=== PATIENT | male | born 1965 | race Caucasian/White ===

== ENCOUNTER 2018-06-01 15:20 | Emergency (ER) | payer MEDICAID ==
[~2018-06-01] VITALS: Ht 167.6 cm; Wt 148.8 kg
[2018-06-01 15:26] VITALS: BP 158/81
[2018-06-01] MEDS ORDERED: mupirocin 2% ointment 22GM TP STA (15:31)
[2018-06-01] MEDS ORDERED: mupirocin 2% nasal ointment 1gm UD NS STA (15:37)
[2018-06-01] MEDS ORDERED: CEPH500C5 PO (15:50)
[2018-06-01] MEDS ORDERED: TRAM50TA2 PO (15:50)
== END 2018-06-01 16:00 | disposition home or self-care (01) ==
LOC: ER 15:21
DX: S81.801A Unspecified open wound, right lower leg, initial encounter (principal); I87.2 Venous insufficiency (chronic) (peripheral); Z88.2 Allergy status to sulfonamides; Z79.2 Long term (current) use of antibiotics; Z79.899 Other long term (current) drug therapy; W54.8XXA Other contact with dog, initial encounter; Y93.89 Activity, other specified; Y92.89 Other specified places as the place of occurrence of the external cause; Y99.8 Other external cause status
CPT/HCPCS: 99283; A6255

== ENCOUNTER 2020-05-09 10:12 | Inpatient (IN) | payer MEDICAID ==
[~2020-05-09] VITALS: Ht 170.2 cm; Wt 165.0 kg
--- NOTE | 2020-05-09 10:58 | NUR ---
PT BEING SEEN BY DR. PICKARD AT BEDSIDE. RECEIVED VO TO HOLD OFF ON LABS, XRAY WANTING TO OBTAIN RECORDS FROM [facility].
[2020-05-09] MEDS ORDERED: ALBUTEROL INHALER 1 PUFF/90 MCG INHALER IH PRN (12:00)
[2020-05-09] MEDS ORDERED: CefTRIAXone/D5W-Rocephin 1gm 50 ML IV ONE (12:00)
[2020-05-09] MEDS ORDERED: dexamethasone sod phosphate 10mg/ml inj IV STA (12:00)
--- NOTE | 2020-05-09 12:10 | NUR ---
DR PICKARD STATES OKAY TO DRAW LABS PER ENTERED ORDERS AT THIS TIME.
[2020-05-09 12:51] LABS: BASOPHILS % (AUTO) 0.3 % (0-1); EOSINOPHILS % (AUTO) 0.2 % (0-6); HEMATOCRIT 41.3 % (42.0-52.0); HEMOGLOBIN 13.4 g/dl (14.0-17.9); LYMPHOCYTES # (AUTO) 0.6 X10'3 (1.1-4.8); LYMPHOCYTES % (AUTO) 8.3 % (21-51); MEAN CORPUSCULAR HEMOGLOBIN 29.4 PG (27.0-31.0); MEAN CORPUSCULAR HGB CONC 32.4 g/dL (33.0-36.5); MEAN CORPUSCULAR VOLUME 90.6 FL (78-98); MEAN PLATELET VOLUME 8.6 FL (7.4-10.4); MONOCYTES # (AUTO) 0.7 X10'3 (0-0.9); MONOCYTES % (AUTO) 10.4 % (2-12); NEUTROPHILS # (AUTO) 5.7 X10'3 (1.8-7.7); NEUTROPHILS % (AUTO) 80.8 % (42-75); PLATELET COUNT 173 X10'3 (140-440); RED BLOOD COUNT 4.56 X10'6 (4.70-6.10); RED CELL DISTRIBUTION WIDTH 13.8 % (11.5-14.5); WHITE BLOOD COUNT 7.1 X10'3 (4.5-11.0)
[2020-05-09] MEDS ORDERED: LISI-600 PO (12:57)
[2020-05-09 13:05] LABS: D-DIMER 0.55 MG/L FEU (0-0.50)
[2020-05-09 13:09] LABS: ALANINE AMINOTRANSFERASE 40 U/L (12-78); ALBUMIN 2.9 G/DL (3.4-5.0); ALBUMIN/GLOBULIN RATIO 0.7 (1.1-1.5); ALKALINE PHOSPHATASE 70 IU/L (46-116); ANION GAP 6 (8-16); ASPARTATE AMINO TRANSFERASE 39 U/L (10-37); BILIRUBIN,TOTAL 0.6 MG/DL (0.1-1.0); BLOOD UREA NITROGEN 6 MG/DL (7-18); BUN/CREATININE RATIO 5.4 (5.4-32.0); C-REACTIVE PROTEIN 4.82 MG/DL (0.0-0.5); CALCIUM 7.6 MG/DL (8.5-10.1); CHLORIDE 102 MMOL/L (99-107); CREATININE 1.12 MG/DL (0.60-1.10); GLUCOSE 109 MG/DL (70-104); MAGNESIUM 1.8 MG/DL (1.5-2.4); POTASSIUM 4.1 MMOL/L (3.5-5.1); SODIUM 139 MMOL/L (135-145); TOTAL CARBON DIOXIDE 30.7 MMOL/L (24-32); eGFR 68 ML/MIN
[2020-05-09] MEDS ORDERED: HYDROcodone/acetaminophen 5mg/325mg tablet PO PRN (14:10)
[2020-05-09] MEDS ORDERED: magnesium 4gm in 100ml NS 100 ML IV PRN (14:10)
[2020-05-09] MEDS ORDERED: magnesium Cl slow-release 64mg tablet PO PRN (14:10)
[2020-05-09] MEDS ORDERED: ondansetron/PF 4mg/2ml inj IV PRN (14:10)
[2020-05-09] MEDS ORDERED: potassium CL 10mEq/100ml bag 100 ML IV PRN ×2 (14:10)
[2020-05-09] MEDS ORDERED: mag hydrox/Alum hydrox/simeth 30ml oral suspension PO PRN ×2 (14:10)
[2020-05-09] MEDS ORDERED: loperamide 2mg capsule PO PRN (14:10)
[2020-05-09] MEDS ORDERED: HYDROcodone/acetaminophen 10/325mg tab PO PRN (14:10)
[2020-05-09] MEDS ORDERED: acetaminophen 325mg tablet PO PRN ×3 (14:10)
[2020-05-09] MEDS ORDERED: ipratropium/albuterol 3ml nebule NEB PRN (14:10)
[2020-05-09] MEDS ORDERED: magnesium hydroxide 30ml (MOM) UD suspension PO PRN ×2 (14:10)
[2020-05-09] MEDS ORDERED: potassium Cl 20 mEq SR tablet PO PRN ×2 (14:10)
[2020-05-09] MEDS ORDERED: magnesium 2GM in 50ml NS 50 ML IV PRN (14:10)
[2020-05-09] MEDS ORDERED: dexamethasone 4mg/ml inj IV SCH ×2 (15:55→16:00)
[2020-05-09 18:01] VITALS: BP 129/64
--- NOTE | 2020-05-09 18:19 | NUR ---
Problems reprioritized. Patient report given, questions answered & plan of care reviewed with JOHANNA CASTELLANOS.
--- NOTE | 2020-05-09 18:44 | NUR ---
Patient in room ORTHO 4006. I have received report from Chayito SPENCER and had the opportunity to ask questions and assume patient care.
[2020-05-09] MEDS: K and/or MAG REPLACEMENT MC SCH (20:00)
[2020-05-09 22:30] VITALS: BP 134/66
[2020-05-09] MEDS: docusate sod 100mg capsule PO SCH (22:48)
[2020-05-10 03:56] LABS: BASOPHILS % (AUTO) 0.3 % (0-1); EOSINOPHILS % (AUTO) 0 % (0-6); HEMATOCRIT 43.2 % (42.0-52.0); LYMPHOCYTES # (AUTO) 0.5 X10'3 (1.1-4.8); LYMPHOCYTES % (AUTO) 8.1 % (21-51); MEAN CORPUSCULAR HEMOGLOBIN 29.3 PG (27.0-31.0); MEAN CORPUSCULAR HGB CONC 32.3 g/dL (33.0-36.5); MEAN CORPUSCULAR VOLUME 90.5 FL (78-98); MONOCYTES # (AUTO) 0.5 X10'3 (0-0.9); MONOCYTES % (AUTO) 8.2 % (2-12); NEUTROPHILS % (AUTO) 83.4 % (42-75); PLATELET COUNT 180 X10'3 (140-440); RED BLOOD COUNT 4.77 X10'6 (4.70-6.10); RED CELL DISTRIBUTION WIDTH 13.8 % (11.5-14.5)
[2020-05-10 04:19] LABS: ALANINE AMINOTRANSFERASE 44 U/L (12-78); ALBUMIN 2.8 G/DL (3.4-5.0); ALBUMIN/GLOBULIN RATIO 0.7 (1.1-1.5); ALKALINE PHOSPHATASE 69 IU/L (46-116); ANION GAP 5 (8-16); ASPARTATE AMINO TRANSFERASE 37 U/L (10-37); BILIRUBIN,TOTAL 0.4 MG/DL (0.1-1.0); BLOOD UREA NITROGEN 8 MG/DL (7-18); BUN/CREATININE RATIO 8.9 (5.4-32.0); CALCIUM 8.5 MG/DL (8.5-10.1); CHLORIDE 105 MMOL/L (99-107); CHOL/HDL RATIO 3.6 (0.00-4.99); CHOLESTEROL 112 MG/DL (0-200); ETHANOL < 0.010 GM/DL (0.0-0.010); GLUCOSE 165 MG/DL (70-104); HDL CHOLESTEROL 31 MG/DL (35-60); LDL CHOLESTEROL 74 MG/DL (50-100); POTASSIUM 4.7 MMOL/L (3.5-5.1); SODIUM 141 MMOL/L (135-145); TOTAL CARBON DIOXIDE 31.5 MMOL/L (24-32); TOTAL PROTEIN 6.9 G/DL (6.4-8.2); TRIGLYCERIDES 42 MG/DL (20-135); eGFR 88 ML/MIN
--- NOTE | 2020-05-10 06:09 | NUR ---
Problems reprioritized. Patient report given, questions answered & plan of care reviewed with Noni SPENCER.
--- NOTE | 2020-05-10 06:49 | NUR ---
Patient in room ORTHO 4006. I have received report from JOHANNA Stratton and had the opportunity to ask questions and assume patient care.
[2020-05-10 08:00] VITALS: BP 131/91
[2020-05-10] MEDS: K and/or MAG REPLACEMENT MC SCH ×2 (08:00→20:00)
[2020-05-10] MEDS ORDERED: azithromycin/NS 500mg/250ml 250 ML IV SCH (08:00)
[2020-05-10] MEDS ORDERED: CefTRIAXone/D5W-Rocephin 1gm 50 ML IV SCH (08:00)
[2020-05-10] MEDS: enoxaparin 40mg/0.4ml syringe SUBCUT SCH (08:07)
[2020-05-10] MEDS: lisinopril 10 MG tablet PO SCH (08:08)
[2020-05-10] MEDS: docusate sod 100mg capsule PO SCH ×2 (08:08→21:05)
[2020-05-10] MEDS: dexamethasone sod phosphate 10mg/ml inj IV SCH (10:10)
[2020-05-10 12:53] LABS: CLARITY,URINE CLEAR (Clear); COLOR,URINE YELLOW (Yellow); GLUCOSE, URINE NEGATIVE (Neg); KETONES,URINE NEGATIVE (Neg); LEUKOCYTE ESTERASE ,URINE NEGATIVE (Neg); NITRITES, URINE NEGATIVE (Neg); OCCULT BLOOD,URINE NEGATIVE (Neg); PH,URINE 6.5 (4.8-8.0); PROTEIN,URINE NEGATIVE (Neg)
[2020-05-10 12:59] LABS: UA COLLECTION TYPE VOIDED
[2020-05-10 13:07] LABS: URINE AMPHETAMINE SCREEN NEGATIVE (Neg); URINE BARBITUATE SCREEN NEGATIVE (Neg); URINE BENZODIAZEPINES SCREEN NEGATIVE (Neg); URINE CANNABINOID SCREEN NEGATIVE (Neg); URINE COCAINE SCREEN NEGATIVE (Neg); URINE METHADONE SCREEN NEGATIVE (Neg); URINE OPIATE SCREEN NEGATIVE (Neg); URINE PHENCYCLIDINE SCREEN NEGATIVE (Neg)
--- NOTE | 2020-05-10 14:42 | NUR ---
Pt has been D/C'd. waiting on for crab picker. Addendum: 05/10/20 at 1443 by Noni Hammonds RN Wrong pt.
[2020-05-10 18:00] VITALS: BP 129/72
--- NOTE | 2020-05-10 18:44 | NUR ---
Patient in room ORTHO 4006. I have received report from Noni SPENCER and had the opportunity to ask questions and assume patient care.
--- NOTE | 2020-05-10 18:55 | NUR ---
Patient in room ORTHO 4006. I have received report from JOHANNA Stratton and had the opportunity to ask questions and assume patient care. Pt has been afebrile, O2Sat 92% R/A. No c/o pain. ate 1005 of meals. will cont to monitor. Addendum: 05/10/20 at 1858 by Noni Hammonds RN Problems reprioritized. Patient report given, questions answered & plan of care reviewed with JOHANNA Stratton.
[2020-05-10 19:59] VITALS: BP 146/89
[2020-05-11 01:00] VITALS: BP 138/78
--- NOTE | 2020-05-11 02:42 | NUR ---
Pt removed tele monitor at approximately 0030. When I went in to reattach tele monitor, pt complained that it was "annoying him" and he was very disgruntled at putting it back on, however he did allow me to reattach it. Tele chamber called to notify me that pt was off tele monitor again. Pt refusing tele monitor at this time. Bev in tele chamber made aware.
[2020-05-11 06:00] VITALS: BP 127/74
--- NOTE | 2020-05-11 06:05 | NUR ---
Patient in room ORTHO 4006. I have received report from JOÃO SPENCER and had the opportunity to ask questions and assume patient care.
--- NOTE | 2020-05-11 06:25 | NUR ---
Problems reprioritized. Patient report given, questions answered & plan of care reviewed with Kat SPENCER.
[2020-05-11 08:00] VITALS: BP 119/71
[2020-05-11] MEDS: K and/or MAG REPLACEMENT MC SCH ×2 (08:00→20:00)
[2020-05-11] MEDS: docusate sod 100mg capsule PO SCH ×2 (08:00→20:00)
[2020-05-11] MEDS: lisinopril 10 MG tablet PO SCH (08:18)
[2020-05-11] MEDS: dexamethasone sod phosphate 10mg/ml inj IV SCH (08:18)
[2020-05-11] MEDS: enoxaparin 40mg/0.4ml syringe SUBCUT SCH (08:19)
--- NOTE | 2020-05-11 08:20 | NUR ---
PATIENT REFUSING LABS. WILL NOTIFY
[2020-05-11 11:30] VITALS: BP 117/55
[2020-05-11] MEDS: VANCOMYCIN 1,500MG inj. 1,500 MG in normal saline 500ml IV soln 500 ML IV SCH ×2 (12:45→20:04)
[2020-05-11 13:31] LABS: BASOPHILS % (AUTO) 0.1 % (0-1); EOSINOPHILS % (AUTO) 0 % (0-6); HEMATOCRIT 42.4 % (42.0-52.0); HEMOGLOBIN 13.9 g/dl (14.0-17.9); LYMPHOCYTES # (AUTO) 0.5 X10'3 (1.1-4.8); MEAN CORPUSCULAR HEMOGLOBIN 29.4 PG (27.0-31.0); MEAN CORPUSCULAR HGB CONC 32.9 g/dL (33.0-36.5); MEAN CORPUSCULAR VOLUME 89.6 FL (78-98); MEAN PLATELET VOLUME 9.2 FL (7.4-10.4); MONOCYTES # (AUTO) 0.8 X10'3 (0-0.9); NEUTROPHILS # (AUTO) 11.9 X10'3 (1.8-7.7); NEUTROPHILS % (AUTO) 89.9 % (42-75); PLATELET COUNT 231 X10'3 (140-440); RED BLOOD COUNT 4.73 X10'6 (4.70-6.10); RED CELL DISTRIBUTION WIDTH 13.8 % (11.5-14.5); WHITE BLOOD COUNT 13.3 X10'3 (4.5-11.0)
[2020-05-11 13:45] LABS: ALANINE AMINOTRANSFERASE 42 U/L (12-78); ALBUMIN 2.8 G/DL (3.4-5.0); ALBUMIN/GLOBULIN RATIO 0.6 (1.1-1.5); ALKALINE PHOSPHATASE 74 IU/L (46-116); ANION GAP 3 (8-16); ASPARTATE AMINO TRANSFERASE 33 U/L (10-37); BILIRUBIN,TOTAL 0.3 MG/DL (0.1-1.0); BLOOD UREA NITROGEN 14 MG/DL (7-18); BUN/CREATININE RATIO 18.4 (5.4-32.0); C-REACTIVE PROTEIN 2.05 MG/DL (0.0-0.5); CALCIUM 8.6 MG/DL (8.5-10.1); CHLORIDE 104 MMOL/L (99-107); CREATININE 0.76 MG/DL (0.60-1.10); GLUCOSE 142 MG/DL (70-104); MAGNESIUM 1.9 MG/DL (1.5-2.4); POTASSIUM 4.5 MMOL/L (3.5-5.1); SODIUM 140 MMOL/L (135-145); TOTAL PROTEIN 7.2 G/DL (6.4-8.2); eGFR > 90 ML/MIN
[2020-05-11 14:22] LABS: HIV ANTIBODY 1&2 RAPID NON-REACTIVE (Neg)
--- NOTE | 2020-05-11 15:04 | NUR ---
Pt with 100% PO intake on regular diet. Per certified dietary manager pt requiring more food for satiety, recommend double eggs q breakfast and double meat BIDLD for satiety. Will continue to follow and monitor need for further nutrition intervention. Addendum: 05/11/20 at [address] Amended: Links added.
--- NOTE | 2020-05-11 18:00 | NUR ---
Patient in room [facility]TH[facility] 4006. I have received report from Gunnar and had the opportunity to ask questions and assume patient care.
--- NOTE | 2020-05-11 18:25 | NUR ---
Problems reprioritized. Patient report given, questions answered & plan of care reviewed with CHARLIE SPENCER.
[2020-05-11 22:00] VITALS: BP 154/89
[2020-05-12] MEDS: VANCOMYCIN 1,500MG inj. 1,500 MG in normal saline 500ml IV soln 500 ML IV SCH (04:11)
--- NOTE | 2020-05-12 06:20 | NUR ---
Patient in room ORTHO 4006. I have received report from Radha and had the opportunity to ask questions and assume patient care.
--- NOTE | 2020-05-12 06:28 | NUR ---
Problems reprioritized. Patient report given, questions answered & plan of care reviewed with JOHANNA Sommer.
[2020-05-12] MEDS: K and/or MAG REPLACEMENT MC SCH ×2 (08:00→20:00)
[2020-05-12] MEDS: docusate sod 100mg capsule PO SCH ×2 (08:00→20:00)
--- NOTE | 2020-05-12 08:25 | NUR ---
Spoke with pt's friend Savita in the lobby who was asked by pt to deliver envelope of $300 check by [employer] ins. issued to pt as well as his car keys. Informed visitor and called pt of risk of loss unless placed in Hospital safe. Pt declined to have items in safe and so items in [employer] envelope with pt's name labeled on envelope and sealed given to pt.
[2020-05-12] MEDS: enoxaparin 40mg/0.4ml syringe SUBCUT SCH (08:29)
[2020-05-12 08:40] VITALS: BP 147/89
[2020-05-12] MEDS: lisinopril 10 MG tablet PO SCH (08:57)
[2020-05-12 10:00] VITALS: BP 136/78
[2020-05-12] MEDS: dexamethasone 4mg tablet PO SCH (11:14)
[2020-05-12] MEDS ORDERED: VANCOMYCIN LEVEL IV ONE (11:30)
--- NOTE | 2020-05-12 12:37 | NUR ---
O2 Sat at rest on room air:_88__% If below 89%: Recovery O2 Sat at rest on __3_LPM:_91__%:__90_% via____nasal cannula (mask/nasal cannula, etc..) No further documentation is necessary. If O2 Sat did not drop below 89% on room air,ambulate patient on room air. O2 Sat while ambulating on room air:__% Recovery O2 Sat while ambulating on ___LPM:___% No further documentation is necessary. If patient does not drop below 89% while ambulating, he/she does not qualify for home O2.
[2020-05-12 18:00] VITALS: BP 140/84
--- NOTE | 2020-05-12 18:00 | NUR ---
Patient in room ORTH[facility] 4006. I have received report from JOHANNA Sommer and had the opportunity to ask questions and assume patient care.
--- NOTE | 2020-05-12 18:20 | NUR ---
Problems reprioritized. Patient report given, questions answered & plan of care reviewed with Kika.
[2020-05-12 22:00] VITALS: BP 133/89
[2020-05-12] MEDS: benzonatate 100mg capsule PO PRN (22:15)
[2020-05-13] MEDS: benzonatate 100mg capsule PO PRN (04:14)
[2020-05-13 04:46] LABS: BASOPHILS % (AUTO) 0.4 % (0-1); EOSINOPHILS % (AUTO) 0 % (0-6); HEMATOCRIT 41.3 % (42.0-52.0); HEMOGLOBIN 13.4 g/dl (14.0-17.9); LYMPHOCYTES # (AUTO) 0.9 X10'3 (1.1-4.8); LYMPHOCYTES % (AUTO) 7.5 % (21-51); MEAN CORPUSCULAR HEMOGLOBIN 29.1 PG (27.0-31.0); MEAN CORPUSCULAR HGB CONC 32.4 g/dL (33.0-36.5); MEAN PLATELET VOLUME 8.9 FL (7.4-10.4); MONOCYTES # (AUTO) 0.8 X10'3 (0-0.9); MONOCYTES % (AUTO) 7.3 % (2-12); NEUTROPHILS # (AUTO) 9.7 X10'3 (1.8-7.7); NEUTROPHILS % (AUTO) 84.8 % (42-75); PLATELET COUNT 237 X10'3 (140-440); RED BLOOD COUNT 4.59 X10'6 (4.70-6.10); RED CELL DISTRIBUTION WIDTH 13.8 % (11.5-14.5); WHITE BLOOD COUNT 11.4 X10'3 (4.5-11.0)
[2020-05-13 05:11] LABS: ALANINE AMINOTRANSFERASE 67 U/L (12-78); ALBUMIN 2.4 G/DL (3.4-5.0); ALBUMIN/GLOBULIN RATIO 0.5 (1.1-1.5); ALKALINE PHOSPHATASE 65 IU/L (46-116); ANION GAP 3 (8-16); ASPARTATE AMINO TRANSFERASE 38 U/L (10-37); BILIRUBIN,TOTAL 0.4 MG/DL (0.1-1.0); BLOOD UREA NITROGEN 13 MG/DL (7-18); BUN/CREATININE RATIO 13.8 (5.4-32.0); C-REACTIVE PROTEIN 5.15 MG/DL (0.0-0.5); CALCIUM 8.3 MG/DL (8.5-10.1); CHLORIDE 104 MMOL/L (99-107); CREATININE 0.94 MG/DL (0.60-1.10); GLUCOSE 160 MG/DL (70-104); LACTATE DEHYDROGENASE 268 U/L (85-227); MAGNESIUM 1.9 MG/DL (1.5-2.4); POTASSIUM 4.3 MMOL/L (3.5-5.1); SODIUM 142 MMOL/L (135-145); TOTAL CARBON DIOXIDE 35.1 MMOL/L (24-32); TOTAL PROTEIN 6.8 G/DL (6.4-8.2); VANCOMYCIN,TROUGH 2.3 UG/ML (6.0-14.0); eGFR 84 ML/MIN
[2020-05-13 06:00] VITALS: BP 152/72
--- NOTE | 2020-05-13 06:15 | NUR ---
Patient in room [facility]TH[facility] 4006. I have received report from Kika and had the opportunity to ask questions and assume patient care.
--- NOTE | 2020-05-13 06:30 | NUR ---
Problems reprioritized. Patient report given, questions answered & plan of care reviewed with JOHANNA Sommer.
[2020-05-13] MEDS: dexamethasone 4mg tablet PO SCH (07:26)
[2020-05-13] MEDS: enoxaparin 40mg/0.4ml syringe SUBCUT SCH (07:26)
[2020-05-13] MEDS: lisinopril 10 MG tablet PO SCH (07:27)
[2020-05-13 07:30] VITALS: BP 133/92
[2020-05-13] MEDS: K and/or MAG REPLACEMENT MC SCH (08:00)
[2020-05-13] MEDS: docusate sod 100mg capsule PO SCH (08:00)
[2020-05-13] MEDS ORDERED: ALBU8.5H8 IH (10:23)
[2020-05-13] MEDS ORDERED: AZIT500T9 PO (10:23)
[2020-05-13] MEDS ORDERED: DEC4T PO (10:23)
[2020-05-13] MEDS ORDERED: BENZ-16 PO (10:23)
--- NOTE | 2020-05-13 11:30 | NUR ---
Reviewed discharge instructions with pt. Pt has new Rx that he was given prescriptions for. RN asked if pt has family/friends that would be able to pick the Rx up for him. Pt stated "well I have a car". Pt was advised he was supposed to be quarantined, pt stated " well nobody else is doing it". Pt advised regarding safety. Pt stated he would call his daughter to milk pickup driver his Rx for him.
--- NOTE | 2020-05-13 13:54 | NUR ---
Pt put on N-95 mask to be transported by [facility] to [facility]. Pt given simple sack lunch, socks and portable O2. Pt appreciative of care.
== END 2020-05-13 15:38 | disposition home or self-care (01) | DRG 137 ==
LOC: ER 10:12 → ED HOLD 14:08 → ORTHO 4S 17:45
PROVIDERS: ADMIT Internal Medicine; ATTEND Internal Medicine
DX: U07.1 COVID-19 (principal); J12.89 Other viral pneumonia; E66.01 Morbid (severe) obesity due to excess calories; G47.33 Obstructive sleep apnea (adult) (pediatric); I10 Essential (primary) hypertension; J44.1 Chronic obstructive pulmonary disease with (acute) exacerbation; R09.02 Hypoxemia; J44.0 Chronic obstructive pulmonary disease with (acute) lower respiratory infection; Z59.0 Homelessness; Z87.891 Personal history of nicotine dependence; Z68.43 Body mass index [BMI] 50.0-59.9, adult
CPT/HCPCS: 36415; 71045; 80053; 80061; 80178; 80183; 80202; 80305; 80320; 80337; 81003; 82948; 83036; 83605; 83615; 83735; 84145; 84443; 85025; 85379; 85610; 86140; 86592; 86703; 87040; 87077; 87081; 87186; 87635; 93005; 93306; 96365; 96375; 99285; G0378; J0456; J0696; J1100; J1650; J3370; J7040

== ENCOUNTER 2021-06-03 17:33 | Emergency (ER) | payer MEDICAID ==
[~2021-06-03] VITALS: Ht 167.6 cm; Wt 154.6 kg
[~2021-06-03 17:33] MED LIST: ALBU8.5H8 IH; AZIT500T9 PO; BENZ-16 PO; DEC4T PO; LISI20TA28 PO
[2021-06-03 17:40] VITALS: BP 151/102
[2021-06-03] MEDS ORDERED: cephalexin 500mg capsule PO ONE (19:40)
[2021-06-03] MEDS ORDERED: ketorolac tromethamine 15mg/ml inj. IM ONE (19:50)
[2021-06-03] MEDS ORDERED: CEPH-585 PO (19:55)
== END 2021-06-03 20:24 | disposition home or self-care (01) ==
LOC: ER 17:34
DX: L03.115 Cellulitis of right lower limb (principal); I10 Essential (primary) hypertension; Z56.0 Unemployment, unspecified; Z79.899 Other long term (current) drug therapy; Z88.2 Allergy status to sulfonamides
CPT/HCPCS: 73660; 96372; 99283; J1885